=== PATIENT | female | born 1995 | race Caucasian/White ===

== ENCOUNTER 2016-11-21 07:32 | Emergency (ER) | payer BC, OTHER ==
[2016-11-21 07:38] VITALS: BP 111/79; PULSE 92; RESP 16; TEMP 97.7; O2SAT 97
--- NOTE | 2016-11-21 07:46 | EDPHY ---
H & P Time Seen by Provider: 11/21/16 07:46 HPI/ROS: CHIEF COMPLAINT: Skin lesion on right buttock HISTORY OF PRESENT ILLNESS: Skin lesion on right buttock. She noticed it just under a week ago but then it got much worse over the past 24 hours. Subjective fever and chills. REVIEW OF SYSTEMS: Today she felt a little bit of short of breath and anxious but no cough and no chest pain. Subjective chills and some myalgias. No ENT symptoms. No GI symptoms. No urinary symptoms. PAST MEDICAL HISTORY: Negative Social history: Negative General Appearance: Alert and conversant, cooperative. Temperature noted at 36.5. Physical exam performed with the patient's nurse Rubina in the room. She has a 1cm area of redness on her right buttock which is not in the perirectal area. Mild induration. Central punctum with 1 mm scab. No blisters or eschar or crepitus. No fluctuance. No lymphangitis. Speaks in full sentences. Lungs clear to auscultation. Neck supple. Does not look septic or toxic. Emergency Department course/MDM: Patient presents with skin cellulitis which has a clinical appearance of staph infection without deep space infection or abscess. She states that she has a history of throat closing up with penicillins but does not know about cephalosporins. Bactrim and clindamycin prescriptions discussed and consented. Warned to use additional barrier method of contraception during this cycle. Clinically does not have indications for I/D of area. Smoking Status: Never smoked Constitutional: Initial Vital Signs Temperature (C) 36.5 C 11/21/16 07:36 Heart Rate 92 11/21/16 07:36 Respiratory Rate 16 11/21/16 07:36 Blood Pressure 111/79 11/21/16 07:36 O2 Sat (%) 97 11/21/16 07:36 O2 Delivery Mode Room Air Allergies/Adverse Reactions: amoxicillin Allergy (Verified 11/21/16 07:35) Penicillins Allergy (Verified 11/21/16 07:35) Home Medications: Medication Instructions Recorded Clindamycin HCl [Clindamycin] 300 mg PO TID #21 cap 11/21/16 Junel 1 mg-20 Mcg Tablet 11/21/16 Sulfamethox/Tmp 800/160 mg 1 tab PO BID@1000,2200 #20 tab 11/21/16 [Bactrim Ds] MDM/Departure - Depart Disposition: Home, Routine, Self-Care Clinical Impression: Cellulitis Condition: Good Instructions: Cellulitis (ED) Additional Instructions: You need to use an additional barrier method of control/contraception during the cycle while you are taking oral antibiotics. Return for worsening or severe pain or redness. Prescriptions: Sulfamethox/Tmp 800/160 mg [Bactrim Ds] 1 tab PO BID@1000,2200 #20 tab Clindamycin HCl [Clindamycin] 300 mg PO TID #21 cap Referrals: Arjun Frederick MD [Medical Doctor] - 11/24/16 (Follow-up in the office if you get worsening or severe redness or pain.)
== END 2016-11-21 08:11 | disposition home or self-care (01) ==
DX: L03.317 Cellulitis of buttock (principal)

== ENCOUNTER 2016-11-23 10:26 | Emergency (ER) | payer BC, OTHER ==
[2016-11-23 10:32] VITALS: BP 130/86; PULSE 92; RESP 18; TEMP 98.8; O2SAT 96
[2016-11-23] MEDS ORDERED: ALPRAZolam 0.5 MG TAB PO ONE (10:43)
--- NOTE | 2016-11-23 10:48 | EDPHY ---
HPI/HX/ROS/PE/MDM Narrative: CHIEF COMPLAINT: "Weird red bump on my lower butt cheek," shortness of breath HPI: This is a 21 y/o female returning to the ED for reevaluation of a red bump on her right buttock with associated shortness of breath for the last 3 days. She does not feel like she has noticed any improvement in the bump since starting antibiotics 2 days ago for possible cellulitis. She notes she's had some chills and sweating but no objective fever. Since appearance of bump, she' s had shortness of breath with exertion and general anxiety. Denies pertinent medical history. REVIEW OF SYSTEMS: Aside from elements discussed in the HPI, a comprehensive 10-point review of systems was reviewed and is negative. PMH: Denies SOCIAL HISTORY: Student, lives in [place] PHYSICAL EXAM: General:Patient is alert, in no acute distress. ENT:Eyes are normal to inspection. ENT inspection normal. Neck: Normal inspection. Full range of motion. Respiratory:No respiratory distress. Breath sounds normal bilaterally. Cardiovascular: Regular rate and rhythm. Strong peripheral pulses. Normal cap refill. Abdomen:The abdomen is nontender to palpation. There are no peritoneal signs. There are normal bowel sounds. Back: Normal to inspection. No tenderness to palpation. Skin: Normal color. Warm and dry. Right buttock: small 0.5cm area of erythema with scab forming, no surrounding cellulitis Extremities: Normal appearance. Full range of motion. Neuro: Oriented x3. Normal motor function. Normal sensory function. ED Course: We discussed treatment options. She opted to try a small dose of Xanax rather than full work up for shortness of breath at this time. 0.5mg PO Xanax administered. MDM: On re-evaluation after dose of oral Xanax, patient states her symptoms have resolved. I have offered her further workup here in the ED including blood work and x-rays, but she refuses- she is comfortable with plan to go home without further workup. Patient has normal vital signs and is afebrile. Her abscess appears well-healed and there are no signs of cellulitis or systemic infection. - Data Points Medications Given: Discontinued Medications Alprazolam (Xanax) 0.5 mg PO EDNOW ONE Stop: 11/23/16 10:44 Last Admin: 11/23/16 11:19 Dose: 0.5 mg General Initial Vital Signs: Initial Vital Signs Temperature (C) 37.1 C 11/23/16 10:29 Heart Rate 92 11/23/16 10:29 Respiratory Rate 18 11/23/16 10:29 Blood Pressure 130/86 H 11/23/16 10:29 O2 Sat (%) 96 11/23/16 10:29 O2 Delivery Mode Room Air Allergies/Adverse Reactions: amoxicillin Allergy (Verified 11/23/16 10:29) Penicillins Allergy (Verified 11/23/16 10:29) Home Medications: Medication Instructions Recorded Clindamycin HCl [Clindamycin] 300 mg PO TID #21 cap 11/21/16 Junel 1 mg-20 Mcg Tablet 11/21/16 Sulfamethox/Tmp 800/160 mg 1 tab PO BID@1000,2200 #20 tab 11/21/16 [Bactrim Ds] Departure - Departure Disposition: Home, Routine, Self-Care Clinical Impression: Scab, on buttock, Shortness of breath Condition: Good Instructions: Dyspnea (ED), Anxiety (ED) Additional Instructions: Follow up with your primary care provider for symptoms not improved over the next 2-3 days. Referrals: NONE *PRIMARY CARE P,. [Primary Care Provider] - As per Instructions [facility] [Outside] - As per Instructions Report Scribed for: Connor Murillo Report Scribed by: Sugar Cottrell Date of Report: 11/23/16 Time of Report: 10:34 Physician Review and Approval Statement: Portions of this note were transcribed by an ED scribe. I personally performed the history, physical exam, and medical decision making; and confirm the accuracy of the information in the transcribed note.
[2016-11-23] MEDS ORDERED: ALPRAZolam 0.25 MG TAB ONE (10:51)
== END 2016-11-23 11:38 | disposition home or self-care (01) ==
DX: R06.02 Shortness of breath (principal); R23.4 Changes in skin texture